=== PATIENT | female | born 1940 | race Caucasian/White ===

== ENCOUNTER → 2017-02-10 | Outpatient (CLI) | payer MEDICARE ==
--- NOTE | 2017-02-10 16:09 | REP ---
MRI LEFT ANKLE: TECHNIQUE: Sagittal proton density, STIR, axial proton density fat sat, T1, coronal proton density, STIR. The Achilles, anterior tibial, posterior tibial, flexor hallucis longus, flexor digitorum longus, and peroneal tendons all appear intact. I do not see significant tenosynovitis. The anterior and posterior talofibular, calcaneofibular and deltoid ligaments are intact. Plantar fascia demonstrates no abnormal signal. Plantar tendon is intact. There is diffuse superficial soft tissue edema present. No fluid collection or significant joint effusion is seen. No ganglion cyst is seen. There is ill-defined marrow edema in the distal fibula. This may represent a bone bruise. There is a tiny amount of subchondral marrow edema in the medial talar dome with mild chondromalacia at the tibiotalar joint. There is mild subchondral marrow edema in the medial cuneiform bone likely from adjacent arthritic change. There does appear to be narrowing at the joint between the medial cuneiform and base of first metatarsal. There is also narrowing at the joint with the adjacent navicular bone. IMPRESSION: No evidence of tendon or ligament tear. Diffuse superficial soft tissue edema is nonspecific. Marrow edema in the distal fibula may represent a bone bruise. Arthritic changes at the tibiotalar joint with minimal subchondral marrow edema in the medial talar dome. There is also arthritic change at the joints between the navicular and medial cuneiform, and medial cuneiform and base of first metatarsal with subchondral marrow edema in the medial cuneiform bone. Signed by Laurent Bland MD 02/10/2017 05:15 P
== END ==
LOC: M RAD 10:56
PROVIDERS: ATTEND Podiatrist
DX: S96.012A Strain of muscle and tendon of long flexor muscle of toe at ankle and foot level, left foot, initial encounter (principal); M94.272 Chondromalacia, left ankle and joints of left foot; X58.XXXA Exposure to other specified factors, initial encounter; Y92.9 Unspecified place or not applicable; Y99.8 Other external cause status

== ENCOUNTER → 2017-08-05 | Outpatient (CLI) | payer MEDICARE | LOC: M RAD 14:57 | DX: R93.1 Abnormal findings on diagnostic imaging of heart and coronary circulation (principal) | CPT/HCPCS: 71250 ==

== ENCOUNTER 2018-05-20 08:21 | Day surgery (SDC) | payer MEDICARE ==
[~2018-05-20 08:21] MED LIST: ACETAMINOPHEN 325 MG TAB PO; PHENYLEPHRINE HCL 10 % OPHTH. SOL 5ML OD; PROPARACAINE 0.5% OPHTH SOL 15ML OD
[2018-05-20] MEDS: LIDOCAINE 3.5 % 1ML OPHTH TOPICAL GEL OU (09:10)
[2018-05-20] MEDS: TROPICAMIDE 1% OPHTH SOLN 2ML OD (09:15)
[2018-05-20] MEDS: OFLOXACIN 0.3 % (OCUFLOX) OPTH SOL 5ML OD (09:15)
[2018-05-20] MEDS: PHENYLEPHRINE 2.5% OPHTH SOL 2ML OD (09:15)
[2018-05-20] MEDS: CYCLOPENTOLATE 2% OPHTH SOLN 2ML BTL OD (09:15)
[2018-05-20] MEDS ORDERED: PROPARACAINE 0.5% OPHTH SOL 15ML As Ordered (10:53)
[2018-05-20] MEDS: POVIDONE-IODINE 5% OPHTH PREP SOL 30ML As Ordered (10:59)
[2018-05-20] MEDS: HEALON DUET PRO(HEALON 10MG/ML 0.55ML & HEALON ENDOCOAT 30MG/ML 0.85ML) As Ordered (10:59)
[2018-05-20] MEDS: BALANCED SALT IRRIGATION SOLUTION 500ML BAG (FOR OR EYE MACHINE) As Ordered (10:59)
[2018-05-20] MEDS ORDERED: fentaNYL 100 MCG/2 ML INJECTION (J3010) As Ordered (11:00)
[2018-05-20] MEDS ORDERED: MIDAZOLAM INJ 2 MG/2 ML VIAL (J2250) As Ordered (11:00)
[2018-05-20] MEDS: LIDOCAINE 1% SDV 5 ML VIAL As Ordered (11:00)
[2018-05-20] MEDS ORDERED: KETOROLAC 0.5% OPHTH SOLN OD (11:30)
[2018-05-20] MEDS ORDERED: TRIMETHOBENZAMIDE 300 MG CAP PO (11:30)
[2018-05-20] MEDS: AcetaZOLAMIDE 500 MG ER CAP PO (11:30)
== END 2018-05-20 11:50 | disposition home or self-care (01) ==
LOC: M SDC 08:21
DX: H25.11 Age-related nuclear cataract, right eye (principal); I10 Essential (primary) hypertension; Z88.0 Allergy status to penicillin; Z79.82 Long term (current) use of aspirin; J44.9 Chronic obstructive pulmonary disease, unspecified; Z79.899 Other long term (current) drug therapy; F17.210 Nicotine dependence, cigarettes, uncomplicated
CPT/HCPCS: 66984

== ENCOUNTER 2018-06-17 09:12 | Day surgery (SDC) | payer MEDICARE ==
[~2018-06-17 09:12] MED LIST changes: -ACETAMINOPHEN 325 MG TAB PO; +MIDAZOLAM INJ 2 MG/2 ML VIAL (J2250) As Ordered; -PHENYLEPHRINE HCL 10 % OPHTH. SOL 5ML OD; +PHENYLEPHRINE HCL 10 % OPHTH. SOL 5ML OS; -PROPARACAINE 0.5% OPHTH SOL 15ML OD; +fentaNYL 100 MCG/2 ML INJECTION (J3010) As Ordered
[2018-06-17] MEDS: OFLOXACIN 0.3 % (OCUFLOX) OPTH SOL 5ML OS (10:00)
[2018-06-17] MEDS: LIDOCAINE 3.5 % 1ML OPHTH TOPICAL GEL OU (10:00)
[2018-06-17] MEDS: PHENYLEPHRINE 2.5% OPHTH SOL 2ML OS (10:00)
[2018-06-17] MEDS: CYCLOPENTOLATE 2% OPHTH SOLN 2ML BTL OS (10:00)
[2018-06-17] MEDS: TROPICAMIDE 1% OPHTH SOLN 2ML OS (10:00)
[2018-06-17] MEDS: POVIDONE-IODINE 5% OPHTH PREP SOL 30ML As Ordered (10:23)
[2018-06-17] MEDS: BALANCED SALT IRRIGATION SOLUTION 500ML BAG (FOR OR EYE MACHINE) As Ordered (10:24)
[2018-06-17] MEDS: HEALON DUET PRO(HEALON 10MG/ML 0.55ML & HEALON ENDOCOAT 30MG/ML 0.85ML) As Ordered (10:24)
[2018-06-17] MEDS: LIDOCAINE 1% SDV 5 ML VIAL As Ordered (10:24)
[2018-06-17] MEDS: ACETYLCHOLINE OPHTH SOLN 1% 2ML (MIOCHOL-E) As Ordered ×3 (10:31→10:33)
== END 2018-06-17 11:15 | disposition home or self-care (01) ==
LOC: M SDC 09:12
DX: H25.12 Age-related nuclear cataract, left eye (principal); I10 Essential (primary) hypertension; J44.9 Chronic obstructive pulmonary disease, unspecified; R35.0 Frequency of micturition; Z88.0 Allergy status to penicillin; Z79.899 Other long term (current) drug therapy; Z79.82 Long term (current) use of aspirin; Z78.0 Asymptomatic menopausal state; Z72.0 Tobacco use
CPT/HCPCS: 66984

== ENCOUNTER → 2018-10-21 | Outpatient (REF) | payer MEDICARE ==
[~2018-10-21] MED LIST changes: +ASPI81TA26 PO; +ATOR40TA75 PO; +CITRTAB18 PO; +HYDR25TAB PO; +METO50TA7 PO; -MIDAZOLAM INJ 2 MG/2 ML VIAL (J2250) As Ordered; -PHENYLEPHRINE HCL 10 % OPHTH. SOL 5ML OS; +VITA100067 PO; +XALA0.007 OU; -fentaNYL 100 MCG/2 ML INJECTION (J3010) As Ordered
== END ==
LOC: M LAB REF 17:46
PROVIDERS: ATTEND Ophthalmology
DX: H16.012 Central corneal ulcer, left eye (principal)

== ENCOUNTER → 2018-11-18 | Outpatient (CLI) | payer MEDICARE ==
--- NOTE | 2018-11-18 15:36 | REP ---
CT chest without contrast: History: Other nonspecific abnormal finding of the lung field. Comparison chest CT study August 05, 2017 and April 23, 2017. Findings: There is a horizontally oriented band-like area of linear parenchymal fibrosis again noted in the right upper lobe anteriorly. This is improved when compared with the April 23, 2017 study. It is essentially unchanged when compared to the most recent prior study of August 05, 2017. No hilar or perihilar mass lesion is seen. No endobronchial lesion is observed. There is also mild linear fibrosis in the left upper lobe near the apex and in the lingula at the base. These findings are unchanged. There is a granulomatous calcification in the right upper lobe. There is no significant pulmonary nodule seen. No pleural or pericardial effusion is noted. No hilar or mediastinal mass or adenopathy is observed. Vascular calcification is again noted. No adrenal lesion is seen. Impression: Stable areas of pleuroparenchymal fibrosis bilaterally. No significant change from the August 05, 2017 study. Electronically Signed by Michael Mayberry MD 11/18/2018 04:29 P
== END ==
LOC: M RAD 14:34
PROVIDERS: ATTEND Nurse Practitioner Family
DX: J84.10 Pulmonary fibrosis, unspecified (principal)

== ENCOUNTER → 2023-11-01 | Outpatient (CLI) | payer MEDICARE ==
[~2023-11-01] MED LIST changes: +ADVA230A INH; +AMLO1TAB24 PO; +BUDE0.5S6 NEB; +FLUT1BLS2 IH; +FURO40TA2 PO; +HYDR-3490 PO; -HYDR25TAB PO; +IPRA0.00 INH; +POTA-151 PO; +PRED10TA2 PO; +SENN-52 PO; +TIOT18INH INH; +VITA100093 PO
[2023-11-01 13:46] LABS: BASO % 0.2 % (0.0-1.0); EOS # 0.2 10^3/uL (0.0-0.5); HEMATOCRIT 39.5 % (36.0-47.0); HEMOGLOBIN 13.7 g/dl (12.0-15.5); LYMPH # 2.5 10^3/uL (1.5-5.0); LYMPH % 14.4 % (24.0-44.0); MEAN CORPUSCULAR HEMOGLOBIN 33.1 pg (27.0-33.0); MEAN CORPUSCULAR HGB CONC 34.7 g/dl (32.0-36.5); MEAN CORPUSCULAR VOLUME 95.4 fl (80.0-96.0); MONO # 1.2 10^3/uL (0.0-0.8); NEUTROPHILS # 13.4 10^3/uL (1.5-8.5); NEUTROPHILS % 76.3 % (36.0-66.0); PLATELET COUNT, AUTOMATED 280 10^3/uL (150-450); RED BLOOD COUNT 4.14 10^6/uL (4.00-5.40); WHITE BLOOD COUNT 17.6 10^3/uL (4.0-10.0)
[2023-11-01 14:20] LABS: CALCIUM LEVEL 9.6 MG/DL (8.3-10.6); CREATININE FOR GFR 1.17 MG/DL (0.55-1.30); POTASSIUM SERUM 3.9 MMOL/L (3.5-5.1)
== END ==
LOC: M LAB 13:27
PROVIDERS: ATTEND Student in an Organized Health Care Education/Training Program
DX: E87.6 Hypokalemia (principal); J06.9 Acute upper respiratory infection, unspecified

== ENCOUNTER → 2024-03-22 | Outpatient (CLI) | payer MEDICARE | LOC: M WUC 11:23 | PROVIDERS: ATTEND Registered Nurse | DX: M25.552 Pain in left hip (principal); M54.50 Low back pain, unspecified ==

== ENCOUNTER 2025-03-20 10:14 | Emergency (ER) | payer MEDICARE ==
[2025-03-20] MEDS: ONDANSETRON 4MG 2ML VIAL IV ONE (12:11)
[2025-03-20] MEDS: MORPHINE 2 MG/ML 1 ML VIAL IV ONE (12:12)
[2025-03-20 12:17] LABS: BASO # 0.1 10^3/uL (0.0-0.2); BASO % 0.4 % (0.0-1.0); EOS # 0.1 10^3/uL (0.0-0.5); EOS % 0.6 % (0.0-3.0); LYMPH # 1.4 10^3/uL (1.5-5.0); LYMPH % 10.1 % (24.0-44.0); MONO # 1.1 10^3/uL (0.0-0.8); MONO % 7.7 % (2.0-8.0); NEUTROPHILS # 11.3 10^3/uL (1.5-8.5); NEUTROPHILS % 80.8 % (36.0-66.0); PLATELET COUNT, AUTOMATED 250 10^3/uL (150-450)
[2025-03-20 12:21] LABS: ERYTHROCYTE SEDIMENTATION RATE 21 mm/hr (0-30)
[2025-03-20 12:36] LABS: INR 0.89
[2025-03-20 12:44] LABS: C REACTIVE PROTEIN QUANTITATIV 1.65 MG/DL (<1.0); CALCIUM LEVEL 9.6 MG/DL (8.3-10.6); CARBON DIOXIDE LEVEL 29.0 MMOL/L (20-31); CHLORIDE LEVEL 96.0 MMOL/L (98-107); CREATININE FOR GFR 1.48 MG/DL (0.55-1.30); GLOMERULAR FILTRATION RATE 34.7 (>32); POTASSIUM SERUM 3.6 MMOL/L (3.5-5.1); SODIUM LEVEL 137.0 MMOL/L (136-145)
[2025-03-20] MEDS: predniSONE 20 MG TAB PO ONE (14:04)
[2025-03-20] MEDS ORDERED: PRED20TA PO (14:04)
[2025-03-20 14:22] VITALS: BP 164/72; TEMP 97.8; O2SAT 93
== END 2025-03-20 14:27 | disposition home or self-care (01) ==
LOC: M ED 10:14
DX: M10.072 Idiopathic gout, left ankle and foot (principal); I10 Essential (primary) hypertension; E78.5 Hyperlipidemia, unspecified; J44.9 Chronic obstructive pulmonary disease, unspecified; Z87.891 Personal history of nicotine dependence; Z88.0 Allergy status to penicillin; Z79.52 Long term (current) use of systemic steroids; Z79.82 Long term (current) use of aspirin; Z79.02 Long term (current) use of antithrombotics/antiplatelets; Z79.899 Other long term (current) drug therapy
CPT/HCPCS: 80048; 84550; 85025; 85610; 85652; 85730; 86140; 93971; 96374; 96375; 99284; J2405; J7512